=== PATIENT | male | born 1940 | race Caucasian/White ===

== ENCOUNTER → 2016-04-29 09:53 | Outpatient (CLI) | payer OTHER | END | disposition home or self-care (01) | LOC: D.MRI 09:53 | DX: M25.571 Pain in right ankle and joints of right foot (principal) ==

== ENCOUNTER → 2016-11-02 08:02 | Outpatient (CLI) | payer OTHER | END | disposition home or self-care (01) | LOC: D.CT 08:00 | DX: R10.9 Unspecified abdominal pain (principal) ==

== ENCOUNTER → 2016-12-06 07:28 | Outpatient (CLI) | payer OTHER ==
[2016-12-06 08:19] LABS: CREATININE - SERUM 1.2 mg/dL (0.6-1.3)
== END | disposition home or self-care (01) ==
LOC: D.LAB 07:28 → D.MRI 08:00
PROVIDERS: Family Medicine
DX: R93.5 Abnormal findings on diagnostic imaging of other abdominal regions, including retroperitoneum (principal)

== ENCOUNTER 2017-08-16 07:12 | Outpatient (CLI) | payer MEDICARE ==
[~2017-08-16] VITALS: Ht 193 cm; Wt 109.1 kg
--- NOTE | ~2017-08-16 | HEMODYNAMI ---
PATIENT:FLOWER DUARTE JR MEDICAL RECORD: [id number] : 42 LOCATION:D.CAT ADMISSION DATE: 08/16/17 Generatedon:08/16/20179:54 Patient name: FLOWER DUARTE Patient #: [id number] SSN: : 01/1941 Date of study: 08/16/2017 Page: Of Hemodynamic Procedure Report Patient Data Patient Demographics Procedure consent was obtained First Name: FLOWER Gender: Male Last Name: FELICIA Suffix: Patient #: [id number] : 1940 Age: 77 year(s) Accession #: Race: Unknown [id number] Additional ID: [id number] Contact details [address]: [address] [place] [address] COURT State: [place] City: [facility] Zip code: [address] Past Medical History Allergies Allergen Reaction Date Comments Reported Other allergy 08/16/2017 Quineprine Admission Admission Data Admission Date: 08/16/2017 Admission Time: 7:12 Procedure Procedure Types Cath Procedure Diagnostic Procedure LHC LHC w/Coronaries Procedure Description Procedure Date Procedure Date: 08/16/2017 Procedure Start Time: 9:39 Procedure End Time: 9:53 Procedure Staff Name Function Fawad Caballero MD Performing Physician Zaira Yoo RT Monitor Sheng Felix RN Nurse Jeramie Charles RT Scrub Procedure Data Cath Procedure Fluoroscopy Diagnostic fluoroscopy Total fluoroscopy Time: 1.9 time: 1.9 min min Diagnostic fluoroscopy Total fluoroscopy dose: 626 dose: 626 mGy mGy Contrast Material Contrast Material Type Amount (ml) Isovue 370 56 Entry Location Entry Primary Successful Side Size Upsize Upsize Entry Closure Crane ccessful Closure Location (Fr) 1 (Fr) 2 (Fr) Remarks Device Remarks Radial Right 6 Fr Mechanical artery Short Compression Estimated blood loss: 5 ml Diagnostic catheters Device Type Used For End Catheter Placement DIAGNOSTIC Valentin 110cm LV Angiography 5Fr catheter ([id number]) DIAGNOSTIC Valentin 110cm Right Coronary 5Fr catheter (032960) Angiography DIAGNOSTIC Valentin 110cm Left Coronary 5Fr catheter (790261) Angiography Procedure Complications No complications Procedure Medications Medication Administration Route Dosage 0.9% NaCl I.V. 100 ml/hr Oxygen etCO2 Nasal cannula 2 l/min Heparin Flush Bag added to field 2 bags (1000units/500ml NS) Lidocaine 2% added to field 20 Radial Cocktail added to field 1 syringe (Verapomil 2mg/Nitro 400mcg/Heparin 1500units) Versed I.V. 1 mg Fentanyl I.V. 50 mcg Radial Cocktail I.A. 1 syringe (Verapomil 2mg/Nitro 400mcg/Heparin 1500units) Hemodynamics Rest Heart Rate: 68 (bpm) Pressure Samples Time Site Value (mmHg) Purpose Heart Use Rate(bpm) 9:44 LV 146/0,10 EDP 71 Gradients Valve Time Site Site Mean SEP/DFP Peak To Heart Use 1 2 (mmHg) (sec/min) Peak Rate (mmHg) (bpm) Aortic 9:45 LV AO 74 Snapshots Pre Cath Intra NCS Post Cath Vital Signs Time Heart Resp SPO2 etCO2 NIBP (mmHg) Rhythm Pain Sedation Rate (ipm) (%) (mmHg) Status Level (bpm) 9:34:23 70 17 89 200/118(171) NSR 0 (11) 10(A) , No pain 9:39:14 68 14 90 36 200/119(172) NSR 0 (11) 9(A) , No pain 9:44:05 73 16 93 36.8 173/75(105) NSR 0 (11) 9(A) , No pain 9:48:50 70 16 88 37.5 166/88(135) NSR 0 (11) 9(A) , No pain 9:52:33 68 16 89 34.5 177/98(134) NSR 0 (11) 9(A) , No pain Medications Time Medication Route Dose Verified Delivered Reason Notes Effectiveness by by 9:32:37 0.9% NaCl I.V. 100 Sheng Sheng Per ml/hr Elvira Felix physician RN RN 9:32:46 Oxygen etCO2 2 l/min Sheng Sheng Per Nasal Elvira Felix physician cannula RN RN 9:32:56 Heparin Flush added 2 bags Sheng Sheng used for Bag to Elvira Felix procedure (1000units/500ml field RN RN NS) 9:33:07 Lidocaine 2% added 20ml Sheng Sheng for local to vial Elvira Felix anesthetic field AJ RN 9:33:18 Radial Cocktail added 1 Sheng Sheng used for (Verapomil to syringe Elvira Felix procedure 2mg/Nitro field AJ RN 400mcg/Heparin 1500units) 9:35:02 Versed I.V. 1 mg Sheng Sheng for sedation Elvira Felix RN, RN 9:35:11 Fentanyl I.V. 50 mcg Sheng Sheng for sedation Elvira Felix RN, RN 9:42:53 Radial Cocktail I.A. 1 Sheng Fawad for (Verapomil syringe Elvira Caballero MD vasodilation 2mg/Nitro RN 400mcg/Heparin 1500units) Procedure Log Time Note 9:06:26 Informed consent obtained and on chart 9:19:59 Time tracking: Regular hours (M-F 7:00 - 5:00) 9:20:03 Plan of Care:Hemodynamics will remain stable., Cardiac rhythm will remain stable., Comfort level will be maintained., Respiratory function will remain adequate., Patient/ family verbilizes understanding of procedure., Procedure tolerated without complication., Recovers from procedure without complications.. 9:20:08 Sheng Felix RN sent for patient. Start room use. 9:20:26 Patient received from Pre/Post Procedure Room to CCL 1 Alert and oriented. Tansferred to table in Supine position. 9:20:27 Warm blankets applied, and patricia hugger turned on for patient comfort. 9:20:28 Correct patient and procedure confirmed by team. 9:20:29 ECG and BP/O2 sat monitors applied to patient. 9:20:30 Full Disclosure recording started 9:32:35 Vital chart was started 9:32:37 0.9% NaCl 100 ml/hr I.V. was administered by Sheng Felix RN; Per physician; 9:32:38 Rhythm: sinus rhythm 9:32:46 Oxygen 2 l/min etCO2 Nasal cannula was administered by Sheng Felix RN; Per physician; 9:32:53 H&P Date Dictated: 08/14/2017 Within 30 days and on chart., H&P Addendum completed by physician on day of procedure. (MUST COMPLETE FOR ALL OUTPATIENTS). 9:32:54 Pre-procedure instructions explained to patient. 9:32:54 Pre-op teaching completed and patient verbalized understanding. 9:32:56 Heparin Flush Bag (1000units/500ml NS) 2 bags added to field was administered by Sheng Felix RN; used for procedure; 9:32:56 Family in patients room. 9:32:57 Patient NPO since Midnight. 9:33:07 Lidocaine 2% 20ml vial added to field was administered by Sheng Felix RN; for local anesthetic; 9:33:15 Patient allergic to Other allergyQuineprine 9:33:17 Is the patient allergic to Iodine/contrast media? No. 9:33:18 Radial Cocktail (Verapomil 2mg/Nitro 400mcg/Heparin 1500units) 1 syringe added to field was administered by Sheng Felix RN; used for procedure; 9:33:20 Is patient on blood thinner?Yes 9:33:21 ACC The patient was administered the following blood thiners within the last 24 hours: ACCPlavix 9:33:23 Patient diabetic? Yes. 9:33:24 If diabetic: On Metformin? Yes 9:33:26 If on Metformin: Last Dose? 08/14/2017 9:33:30 Previous problem with sedation/anesthesia? No ? 9:33:31 Snore? Yes 9:33:32 Sleep apnea? Yes 9:33:33 Deviated septum? No 9:33:34 Opens mouth fully? Yes 9:33:35 Sticks out tongue? Yes 9:33:37 Airway obstruction? No ? 9:33:39 Dentures? No ? 9:33:42 Pre procedure: right dorsailis pedis pulse 2+ Normal; easily identifiable; not easily obliterated 9:33:44 Modified Eric's test Ulnar < 7 seconds 9:33:46 Patient pain scale 0/10 ?. 9:33:53 IV patent on arrival in left hand with 0.9% NaCl at [facility]. 9:33:55 Lab results completed and on chart. 9:34:06 Right Radial & Right Groin area was prepped with chlora-prep and draped in sterile fashion 9:34:07 Alarms reviewed by R. N. 9:34:07 Sharps counted by scrub and verified by R.N. 9:34:12 Use device set Radial Dx or PCI 9:34:13 ACIST Syringe (91136) opened to sterile field. 9:34:14 Medline Cath Pack ([id number]) opened to sterile field. 9:34:14 Bag Decanter (2002S) opened to sterile field. 9:34:15 DIAGNOSTIC WIRE .035 260cm J wire (378970) opened to sterile field. 9:34:15 ACIST Hand Control (69980) opened to sterile field. 9:34:16 ACIST Manifold (75059) opened to sterile field. 9:34:18 MBrace Wrist Support ([id number]) opened to sterile field. 9:34:19 SHEATH 6Fr Prelude Radial ([id number]) opened to sterile field. 9:34:27 Final Timeout: patient, procedure, and site verified with staff and physician. All members of the team are in agreement. 9:34:35 Right Radial site verified by team. 9:34:38 Physical assessment completed. ASA score P 2 - A patient with mild systemic disease as per Fawad Caballero MD. 9:34:40 Sedation plan: IV Moderate Sedation Medication:Versed, Fentanyl 9:35:02 Versed 1 mg I.V. was administered by Sheng Felix RN; for sedation; 9:35:04 Tegaderm 4 x 4 (1626W) opened to sterile field. 9:35:11 Fentanyl 50 mcg I.V. was administered by Sheng Felix RN; for sedation; 9:39:06 Zero performed for pressure channel P1 9:39:11 Baseline sample Acquired. 9:39:19 Procedure started. 9:39:24 Local anesthetic to right radial artery with Lidocaine 2% by Fawad Caballero MD.INITIAL ACCESS ONLY 9:41:31 A 6 Fr Short sheath was inserted into the Right Radial artery 9:42:53 Radial Cocktail (Verapomil 2mg/Nitro 400mcg/Heparin 1500units) 1 syringe I.A. was administered by Fawad Caballero MD; for vasodilation; 9:43:09 A DIAGNOSTIC Valentin 110cm 5Fr catheter (395120) was advanced over the wire and used for LV Angiography. 9:45:15 LV gram done using FAIRCHILD 9:45:18 LV hemodynamics recorded. 9:45:21 Injector settings: Ml/sec: 12, Volume: 8, 9:45:31 A DIAGNOSTIC Vaelntin 110cm 5Fr catheter (193971) was advanced over the wire and used for Right Coronary Angiography. 9:46:48 A DIAGNOSTIC Valentin 110cm 5Fr catheter (825160) was advanced over the wire and used for Left Coronary Angiography. 9:48:34 Catheter removed. 9:48:50 Sheath removed intact; hemostasis achieved with Mechanical Compression to the Right Radial artery. 9:48:51 Procedure ended.(Physican Out) 9:49:51 Fluoroscopy time 01.90 minutes. 9:49:55 Fluoroscopy dose: 626 mGy 9:49:55 Flurop Dose total: 626 9:50:00 Contrast amount:Isovue 370 56ml. 9:50:01 Sharps counted by scrub and verified by R.N. 9:50:03 Insertion/operative site no bleeding no hematoma. 9:50:10 Post right radial artery:stable, clean and dry 9:50:12 Post Procedure Pulses reassessed and unchanged 9:50:17 Post-procedure physical assessment completed. ASA score P 2 - A patient with mild systemic disease as per Fawad Caballero MD. 9:50:19 Post procedure rhythm: unchanged. 9:50:22 Estimated blood loss: 5 ml 9:50:25 Post procedure instruction explained to patient.Patient verbalizes understanding. 9:50:25 Patient needs reinforcement of post procedure teaching. 9:50:51 Procedure Complication : No complications 9:50:52 See physician's report for complete and final results. 9:51:01 TR BAND Standard ([id number]) opened to sterile field. 9:51:21 TR band inflated with 9cc of air. 9:51:39 Procedure and supply charges have been captured, reviewed, submitted and are correct. 9:52:29 PAGED SAHARA RE: CABG CONSULT FOR DR LOBO 9:53:31 Vital chart was stopped 9:53:34 Report given to Pre/Post Procedure Room. 9:53:37 Patient transfered to Pre/Post Procedure Room with Stretcher. 9:53:45 Procedure ended. 9:53:45 Full Disclosure recording stopped 9:53:49 End room use (Document Last) Device Usage Item Name Manufacture Quantity Catalog Number Hospital Part Current M inimal Lot# / Charge Number Stock Stock Serial# Code ACIST Syringe Acist 1 84413 373539 364364 648551 2 0 (86019) Medical Systems Inc Medline Cath Cardinal 1 [id number] 905850 22390 195116 5 Pack Health ([id number]) Bag Decanter Microtek 1 2001S 350302 86879 301140 5 (2001S) Medical Inc. DIAGNOSTIC WIRE St Maximus 1 270079 820519 666089 378788 3 0 .035 260cm J wire (885316) ACIST Hand Acist 1 96229 245994 755586 561419 5 Control (46174) Medical Systems Inc ACIST Manifold Acist 1 45330 502893 020530 001852 5 (85919) Medical Systems Inc MBrace Wrist Advanced 1 140-0250-00 396209 91211 346910 5 Support Vascular ([id number]) Dynamics SHEATH 6Fr Merit 1 [id number] 043656 420157 940571 5 Prelude Radial Medical ([id number]) Tegaderm 4 x 4 3M 1 1626W 660258 126823 520112 5 (1626W) DIAGNOSTIC Terumo 1 40-4645 226634 543341 477235 5 Valentin 110cm 5Fr catheter (999592) TR BAND Terumo 1 [id number] 191707 327922 011023 4 0 Standard (NOU85SAN) Signature Audit [place] Stage Time Signature Unsigned Intra-Procedure 08/16/2017 Zaira 9:53:59 AM Counts RT(R) Signatures Monitor : Zaira Signature : Counts RT Date : Time : [address] [place] [address]
[2017-08-16] MEDS ORDERED: CARDURA1 MG PO (07:19)
[2017-08-16] MEDS ORDERED: NEURONTIN 300300 MG PO (07:20)
[2017-08-16] MEDS ORDERED: AVODART0.5 MG PO (07:20)
[2017-08-16] MEDS ORDERED: NORMODYNE / TR300 MG PO (07:21)
[2017-08-16] MEDS ORDERED: SYNTHROID75 MCG PO (07:21)
[2017-08-16] MEDS ORDERED: LINZESS145 MCG PO (07:22)
[2017-08-16] MEDS ORDERED: MOBIC7.5 MG PO (07:23)
[2017-08-16] MEDS ORDERED: OMEPRAZOLE40 MG PO (07:23)
[2017-08-16] MEDS ORDERED: MYRBETRIQ50 MG PO (07:23)
[2017-08-16] MEDS ORDERED: KLOR-CON 1010 MEQ PO (07:24)
[2017-08-16] MEDS ORDERED: ZOCOR40 MG PO (07:24)
[2017-08-16] MEDS ORDERED: ALDACTONE25 MG PO (07:24)
[2017-08-16] MEDS ORDERED: DETROL LA4 MG PO (07:25)
[2017-08-16] MEDS ORDERED: DIOVAN320 MG PO (07:25)
[2017-08-16] MEDS ORDERED: GLUCOPHAGE500 MG PO (07:26)
[2017-08-16 07:34] VITALS: BP 199/106; Ht 193 cm; Wt 109.1 kg
[2017-08-16 07:51] LABS: BASOPHILS 0.5 % (0-2); EOSINOPHILS 3.6 % (0-7); HEMATOCRIT 39.4 % (42.0-54.0); HEMOGLOBIN 13.9 g/dL (13.5-17.5); LYMPHOCYTES 17.3 % (15-50); MCH 31.6 pg (26.0-34.0); MCHC 35.3 g/dL (31.0-37.0); MCV 89.5 fL (80.0-100.0); MEAN PLATELET VOLUME 12.3 fL (7.4-10.4); MONOCYTES 11.4 % (2-11); NEUTROPHILS 67.2 % (40-80); PLATELET COUNT 151 10x3/uL (130-400); RDW 12.9 % (11.5-14.5); WBC 5.9 10x3/uL (4.8-10.8)
[2017-08-16 07:56] LABS: CALCIUM 9.1 mg/dL (8.5-10.1); CARBON DIOXIDE 25.5 mmol/L (21.0-32.0); CREATININE - SERUM 1.5 mg/dL (0.6-1.3); POTASSIUM - SERUM 3.5 mmol/L (3.5-5.1)
== END 2017-08-16 13:00 | disposition home or self-care (01) ==
LOC: D.CATH 07:12
PROVIDERS: Internal Medicine Cardiovascular Disease
DX: I25.119 Atherosclerotic heart disease of native coronary artery with unspecified angina pectoris (principal); E11.9 Type 2 diabetes mellitus without complications; Z01.812 Encounter for preprocedural laboratory examination

== ENCOUNTER 2017-08-18 11:30 | Inpatient (IN) | payer MEDICARE ==
[~2017-08-18] VITALS: Ht 193 cm; Wt 116.9 kg
--- NOTE | ~2017-08-18 | HP ---
PATIENT: FLOWER DUARTE JR MEDICAL RECORD: [id number] ACCOUNT: [id number] LOCATION:[facility] : 42 ADMISSION DATE: 08/22/17 HISTORY AND PHYSICAL EXAMINATION FLOWER Felton (77yo, M) ID# [id number]. Date/Time08/17/2017 02:50OKBST97/12/1941Service Dept.NP_[facility] ClinicProviderEDKELSEA RIOS MDInsuranceMed Primary: [place] (MEDICARE REPLACEMENT/ADVANTAGE - PFFS) Insurance # : [id number] Employer Name : RETIRED Prescription: Solum - This member could not be found in the payer's files. Please verify coverage and all member demographic information. Chief Complaint Coronary artery disease CAD EVALUATION FOR CABG Vitals BP:168/88 sitting R arm 08/17/2017 02:41 pm 164/80 sitting L arm 08/17/2017 02:42 pmHR:78/REG 08/17/2017 02:43 pmHt:6 ft 3 in 08/17/2017 02:39 pmWt:242 lbs 08/17/2017 02:39 pmBMI:30.2 08/17/2017 02:39 pmAllergies Reviewed Allergies ACCUPRILMedications Reviewed Medications Detrol LA 4 mg capsule,extended release Take 1 capsule(s) every day by oral route.08/17/17 enteredKathy Wilsondoxazosin 1 mg tablet Take 1 tablet(s) every day by oral route.08/17/17 enteredKathy Wilsondutasteride 0.5 mg capsule Take 1 capsule(s) every day by oral route.08/17/17 enteredKathy Wilsongabapentin 300 mg capsule Take 1 capsule(s) every day by oral route.08/17/17 enteredKathy WilsonKlor-Con 10 mEq tablet,extended release Take 1 tablet(s) every day by oral route.08/17/17 enteredKathy Wilsonlabetalol 300 mg tablet Take 1 tablet(s) twice a day by oral route.08/17/17 enteredKathy Wilsonlevothyroxine 75 mcg tablet Take 1 tablet(s) every day by oral route.08/17/17 enteredKathy WilsonLinzess 72 mcg capsule Take 1 capsule(s) every day by oral route.08/17/17 [facility] Take 1 tablet(s) every day by oral route.08/17/17 [facility] HospitalmetFORMIN 500 mg tablet Take 1 tablet(s) twice a day by oral route.08/17/17 [facility] Hospitalmirabegron ER 50 mg tablet,extended release 24 hr Take 1 tablet(s) every day by oral route.08/17/17 [facility] Hospitalomeprazole 40 mg capsule,delayed release Take 1 capsule(s) every day by oral route.08/17/17 [facility]alsimvastatin 40 mg tablet Take 1 tablet(s) every day by oral route.08/17/17 [facility]valsartan 320 mg tablet Take 1 tablet(s) every day by oral route.08/17/17 [facility] HospitalProblems Reviewed Problems Coronary arteriosclerosis - Onset: 08/17/2017 HISTORY AND PHYSICAL [id number] FLOWER DUARTE JR Family History Reviewed Family History Mother- Aortic valve disorderFather- Essential hypertensionSocial History Reviewed Social History Cardiology Family history of heart disease?: Y Smoking Status: Never smoker High Cholesterol: Y High blood pressure: Y Overweight: Y Obese: Y Diabetes: Y Surgical History Reviewed Surgical History bladder cancer 1994 colonoscopy Past Medical History Reviewed Past Medical History Bladder Problems: Y - cancer 1994 Depression: Y Diabetes: Y GERD: Y Hyperlipidemia: Y Hypertension: Y Hypothyroidism: Y Shortness of Breath: Y Cancer: (no answer) - bladder 1994 Documents for Discussion Discussed the following documents: CARDIAC CATHETERIZATION (SURG) - 08/16/17 Screening None recorded. HPI severe coronary artery disease ROS Patient reports exercise intolerance but reports no fever, no night sweats, no significant weight gain, and no significant weight loss; ffatigue. He reports shortness of breath when walking but reports no chest pain, no arm pain on exertion, no shortness of breath when lying down, no palpitations, and no known heart murmur. He reports no dry eyes, no irritation, and no vision change. He reports no diffi culty hearing and no ear pain. He reports no frequent nosebleeds and no nose/sinus problems. He reports no sore throat, no bleeding gums, no snoring, no dry mouth, no mouth ulcers, no oral abnormalities, and no teeth problems. He reports no jugular vein d i stension and no swollen glands. He reports no cough, no wheezing, no shortness of breath, and no coughing up blood. He reports no abdominal pain, no vomiting, normal appetite, no diarrhea, not vomiting blood, no nausea, and no constipation. He reports no i ncontinence, no difficulty urinating, no hematuria, and no increased frequency. He reports no muscle aches, no muscle weakness, no arthralgias/joint pain, no back pain, and no swelling in the extremities. He reports no abnormal mole, no jaundice, and no r a shes. He reports no loss of consciousness, no weakness, no numbness, no seizures, no dizziness, and no headaches. He reports no depression, no sleep disturbances, feeling safe in relationship, and no alcohol abuse. He reports no fatigue. He reports no swo llen glands and no bruising. He reports no runny nose, no sinus pressure, no itching, no hives, and no frequent HISTORY AND PHYSICAL [id number] FLOWER DUARTE JR sneezing. ROS as noted in the HPI Physical Exam Patient is a 77-year-old male. Constitutional: General Appearance well nourished and developed and healthy-appearing. Level of Distress NAD. Ambulation ambulating normally. Cardiovascular: Apical Impulse not displaced or no thrill. Heart Auscultation normal s1 and s2; no murmurs, rubs, or gallops; and RRR. Arterial Pulses no abdominal aorta bruits, femoral bruits, or popliteal bruits and 2+ bilateral, carotid 2+ bilateral, femoral 2+ bilateral, popliteal 2+ bilateral, and dorsalis pedis 2+ bilateral. Edema no edema or varicosities. Lungs: Repiratory Effort no dyspnea. Percussion no hyperresonance o r dullness or flatness. Auscultation no wheezing, rhonchi, or rales / crackles and breathing sounds normal, good air movement, and CTA except as noted. Abdomen: Bowl Sounds normal. Inspection and Palpation no tenderness, guarding, masses, or rebound tende rness and soft and non-distended. Liver non-tender and no hepatomegaly. Spleen non-tender and no splenomegaly. Hernia none palpable. Musculoskeletal System: Gait And Stance normal gait and stance. Digits and Nails normal nails and no cyanosis. Neurologic: Cranial Nerves grossly intact. Reflexes DTRs 2+ bilaterally throughout. Sensation grossly intact. Lymph Nodes: Lymph Nodes no cervical LAD, supraclavicular LAD, axillary LAD, or inguinal LAD. Eyes: Lids and Conjunctivae no discharge or pallor and non-injected. Pupils PERRLA. Cornea grossly intact. EOM EOMI. Lens clear. Sclerae non-icteric. Neck: Neck no masses, enlarged lymph nodes, or carotid bruits and supple and trachea midline. Thyroid no enlargement or nodules and non-tender. Skin: Inspection and Palpation no rash, lesions, ulcers, jaundice, or abnormal nevi. Assessment / Plan severe coronary artery disease fatigue secondary to coronary artery disease 1. Coronary arteriosclerosis I25.10: Atherosclerotic heart disease of comanche coronary artery without angina pectoris Discussion Notes Severe coronary artery disease. Diabetes. Good left ventricular function I have discussed the patient's disease process with him and his family in detail as well as the alternative methods of treat ment. We discussed coronary artery bypass including the expected benefits and risks which include bleeding, infection, stroke, , and imponderables. He understands all of the above and wishes to proceed with planned surgery. Carotid Doppler study Allow Plavix to wear off HISTORY AND PHYSICAL [id number] FLOWER DUARTE JR No need for pulmonary function studies he has never smoked Scheduled for 22 August 2017 JAGJIT RIOS MD at 1309 CC: [id number] DICTATION DATE: 08/17/17 1400 RELAY ASSEMBLER: DONI 08/18/17 1129 ADM IN [place] [address] [place] [address]
--- NOTE | ~2017-08-18 | CN ---
PATIENT NAME:FLOWER DUARTE JR MEDICAL RECORD: [id number] : 42 LOCATION:[facility] ADMIT DATE: 08/22/17 ACCOUNT: [id number] CONSULTING PHYSICIAN: MJ PEARSON MD REFERRING PHYSICIAN: JAGJIT RIOS MD DATE OF CONSULTATION: 08/22/2017 DATE OF ADMISSION: 08/22/2017 REASON FOR CONSULTATION: Medical management. HISTORY OF PRESENT ILLNESS: The patient is a 77-year-old gentleman who had presented to my office on 07/27/2017. He complained of increasing shortness of breath. He had shortness of breath with exertion combined with extreme fatigue. He was referred to Dr. Fawad Caballero, waiter waitress, for dyspnea on exertion. The patient did undergo cardiac catheterization and was found to have 5-vessel coronary artery disease. He was referred to Dr. Rios. Dr. Rios did admit the patient for coronary artery bypass grafting today. PAST MEDICAL HISTORY: Significant that he has had hypothyroidism. He has had diabetes mellitus, vitamin D deficiency and hyperlipidemia. He has had obstructive sleep apnea. He has had hypertension, osteoarthritis of the knees. He has had bladder cancer in 1994, bursitis of shoulders. FAMILY HISTORY: Father had heart disease, at 88 years of age. Mother's history is unknown. HABITS: The patient has never been a smoker, occasional alcoholic beverage. He is a graduate of 4-year college degree. He is . 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 ALLERGIES: HE DOES HAVE ALLERGIES TO ACCUPRIL, CAUSE ANAPHYLAXIS. MEDICATIONS: Include Cardura 1 mg one p.o. bedtime, he is on dutasteride 0.5 mg daily, Flonase 1 spray in each naris every day, gabapentin 300 mg p.o. at bedtime for peripheral neuropathy, labetalol 300 mg 1-1/2 tablet b.i.d., levothyroxine 75 mcg once a day, Linzess 75 mg daily, meloxicam 15 mg daily, metformin 500 mg 1 p.o. b.i.d., Myrbetriq 50 mg p.o. every day, omeprazole 40 mg once a day, KCl 10 mEq 2 tablets once a day, Zocor 40 mg daily, spironolactone 25 mg daily. REVIEW OF SYSTEMS: Cannot be gathered at the present time. SOCIAL HISTORY: He was born and raised in [facility]. He is currently . PHYSICAL EXAMINATION: GENERAL: The patient is postop at the present time. He is intubated. VITAL SIGNS: His temperature is 98.2, his pulse is 97, respirations 14, his blood pressure is 110/56 and O2 sat is 94%. HEENT: Head is normocephalic. No lesions. Ears: TMs clear. Eyes: Pupils equal, round and reactive to light. His extraocular movements are intact. His nasal cavity, oral cavity, oropharynx are clear. He does have an NG tube present. He has a trach tube present as well. HEART: Has a regular rate. CONSULT REPORT [id number] FLOWER DUARTE JR LUNGS: Appear clear. He has had a midline sternal incision. No active bleeding is noted. He also has two chest tubes. Moss catheter is in place. ABDOMEN: Soft, bowel sounds are positive. LOWER EXTREMITIES: He has no evidence of cyanosis in the feet. He has dressings bilaterally on both legs. POSTOPERATIVE DATA: His white count is 12.7, hemoglobin 11.1, hematocrit 32.1, his platelets are 124. His sodium is 145, potassium 4.1, chloride is 109, BUN is 26, creatinine is 1.4. His glucose was 269, calcium was 7.9. Preoperatively, he had had carotid Dopplers, which showed no significant stenosis. He also had a chest x-ray on the , which showed no cardiomegaly, no active infiltrates. ASSESSMENT: Status post coronary artery bypass grafting times 4. History of hypertension, hyperlipidemia, diabetes mellitus, hypothyroidism, history of bladder cancer, currently stable. PLAN: Continue his current medications. The patient is currently on insulin. We will follow with you. Thanks for the consultation. TRANSINT:[id number] Voice Confirmation ID: [id number] DOCUMENT ID: [id number] MJ PEARSON MD at 1027 CC: [id number] DICTATION DATE: 08/22/171741 DAMPER FITTER: 08/22/17 1846 ADM IN [facility] [address] [place] [address]
--- NOTE | ~2017-08-18 | OP ---
PATIENT NAME: FLOWER DUARTE JR MEDICAL RECORD: [id number] :41 LOCATION:[facility] D.CV05 ADMISSION DATE:08/22/17 SURGEON: JUAQUIN RIOS MD DATE OF OPERATION: 08/22/2017 SURGEON: Juaquin Rios MD HYDROMETER TESTER: Tony Orozco MD ANESTHESIA: General endotracheal, Dr. Rogers. OPERATION PERFORMED: Coronary artery bypass utilizing left internal thoracic sequential first diagonal, sequential left anterior descending, reverse saphenous vein segment to the distal circumflex coronary artery and reverse saphenous vein segment to the right coronary artery. PREOPERATIVE DIAGNOSIS: Severe occlusive coronary artery disease. POSTOPERATIVE DIAGNOSIS: Severe occlusive coronary artery disease. INDICATION FOR OPERATION: Severe occlusive coronary artery disease with compelling anatomy. FINDINGS OF THE OPERATION: The vein was of good quality in the thigh, but lower leg on the right was small. The left internal thoracic was an excellent graft for sequential grafting. The targets were of good caliber and quality. ESTIMATED BLOOD LOSS: Cell Saver was used. DESCRIPTION OF PROCEDURE: After informed consent, adequate preoperative medication, and evaluation, the patient was brought to the operating room and placed on the table in the supine position. After induction of general endotracheal anesthesia and application of appropriate monitoring devices, the chest, neck, abdomen, and both legs were prepped and draped in a sterile field, utilizing Betadine scrub, alcohol, and Betadine solution. Betadine-impregnated drape was also used. Saphenous vein was harvested from the right leg and prepared for reverse saphenous vein grafting. The leg was closed over drains utilizing 3-0 Vicryl and skin enrrique. A median sternotomy incision was made and dissection carried down the fascia. Hemostasis was maintained with electrocautery. Sternum was divided. Innominate vein was identified and protected. Left internal thoracic was taken down and prepared for grafting. The patient was given a calculated dose of heparin, cannulated in standard fashion utilizing 1 aortic, one 2-stage cannula in atrium and inferior vena cava. The patient was placed on cardiopulmonary bypass, cooled to 32 degrees centigrade. A cross clamp was placed just proximal to the aortic cannula and the patient was given cardioplegic solution through the aortic root. The patient was given a cold induction and cold maintenance. The patient was given cold intermittent cardioplegic solution throughout the procedure through the grafts, through the root or a combination of both. The first vessel to be grafted was the right coronary artery. It was grafted end-to-side utilizing a running 7-0 Prolene suture. Grafts were measured back to the aorta and a proximal anastomosis fashioned utilizing running 6-0 Prolene suture. Next, the distal circumflex or second obtuse marginal was exposed and an anastomosis OPERATIVE REPORT [id number] FLOWER DUARTE JR end-to-side made utilizing a running 7-0 Prolene suture. The graft was measured back to the aorta and a proximal anastomosis fashioned utilizing running 6-0 Prolene suture. Next, left internal thoracic was brought out through the hole in pericardium, sutured to the first diagonal [id number] utilizing a running 8-0 Prolene suture. Pedicle was attached to the epicardium utilizing 6-0 Prolene suture. Next, the distal anastomosis to the left anterior descending was performed end-to-side utilizing a running 8-0 Prolene suture. All maneuvers to remove trapped air were performed. The patient was given warm cardioplegic reperfusion and controlled reperfusion. The patient rewarmed to 37 degrees centigrade. Two atrial and 2 ventricular pacing wires were placed in the heart and brought out through the epigastric area. The patient was weaned from cardiopulmonary bypass. After being stable off bypass, he was given calculated dose of protamine to reverse the heparin. Hemostasis was assured. A #40 right angle and #36 chest tubes were brought in through the epigastric area and placed in mediastinum. A separate left pleural tube was placed in the left hemithorax and connected to underwater seal and suction. Chest was again irrigated. Instrument count and sponge count were correct times 2. Chest closed in layers utilizing #7 wire on the sternum, #2 Vicryl on linea alba and pectoralis fascia. Subcutaneous tissue was approximated with 3-0 Vicryl and skin approximated with 3-0 subcuticular Vicryl. Sterile dressings were applied. The patient tolerated the procedure well and was transferred to CV ICU in satisfactory condition. TRANSINT:[id number] Voice Confirmation ID: [id number] DOCUMENT ID: [id number] JUAQUIN RIOS MD at 1309 CC: [id number] DICTATION DATE: 08/22/17 1500 RN SANE: 08/22/17 1525 ADM IN [address] [place] [address]
--- NOTE | ~2017-08-18 | TEE ---
PATIENT:FLOWER DUARTE JR MEDICAL RECORD: [id number] LOCATION:[place] [address] AGE OF PATIENT: 77 ADMISSION DATE: 08/22/17 SEX: M REFERRING PHYSICIAN: INTERPRETING PHYSICIAN: DOMINICK OLIVAS MD TRANSESOPHAGEAL ECHOCARDIOGRAM Date: 08/22/17 MARISELA CHARGE Y INDICATIONS: CABG PREMEDICATIONS: PATIENT'S RESPONSE PROCEDURE DOPPLER MEASUREMENTS: LVIT LA PA RA LVOT RVOT Asc. Ao AV Gradient Peak AV Mean AV Area MV Gradient Peak MV Mean MV Area INTERPRETATION: Doppler: 2-D: COLOR FLOW DOPPLER NORMAL SALINE STUDY: MISCELLANOUS: DIAGNOSIS: PLAN: Tutoring Manager:4 Dr. Caballero Business Process Lead: 2 ABIMAEL SIEGEL COMMENTS: GABRIEL PATIENT DATE OF SERVICE: PROCEDURE: Transesophageal echo evaluation of valvular structures during bypass surgery. FINDINGS: 1. Left ventricular chamber size is within normal limits. Left ventricular systolic function is normal. Overall ejection fraction estimated 60%. 2. Left atrium, right atrium, and right ventricle chamber sizes are within TRANSESOPHAGEAL ECHOCARDIOGRAM REPORT [id number] FLOWER DUARTE JR normal limits. 3. Valvular structures have normal structure and motion. 4. Doppler interrogation only reveals trace mitral regurgitation, trace tricuspid regurgitation, no other valvular insufficiency or stenosis. 5. No evidence of pericardial effusion or left ventricular thrombus. TRANSINT:[id number] Voice Confirmation ID: [id number] DOCUMENT ID: [id number] at 1741 CC: [id number] DICTATION DATE: 08/22/17 1219 POWER AND RECOVERY SUPERINTENDENT: 08/22/17 1605 ADM IN [place] [id number] [place] [address]
[~2017-08-18 11:30] MED LIST: ALDACTONE25 MG PO; AVODART0.5 MG PO; CARDURA1 MG PO; DETROL LA4 MG PO; DIOVAN320 MG PO; GLUCOPHAGE500 MG PO; KLOR-CON 1010 MEQ PO; LINZESS145 MCG PO; MOBIC7.5 MG PO; MYRBETRIQ50 MG PO; NEURONTIN 300300 MG PO; NORMODYNE / TR300 MG PO; OMEPRAZOLE40 MG PO; SYNTHROID75 MCG PO; ZOCOR40 MG PO
[2017-08-18] MEDS ORDERED: DETROL LA4 MG PO (12:31)
[2017-08-18] MEDS ORDERED: VITAMIN D31000 UNI2 PO (12:33)
[2017-08-18 14:58] LABS: BASOPHILS 0.6 % (0-2); HEMOGLOBIN 14.2 g/dL (13.5-17.5); IMMATURE GRANULOCYTES 0.2 % (0-5); LYMPHOCYTES 19.5 % (15-50); MCH 31.9 pg (26.0-34.0); MCHC 35.5 g/dL (31.0-37.0); MCV 89.9 fL (80.0-100.0); MEAN PLATELET VOLUME 11.8 fL (7.4-10.4); NEUTROPHILS 69.7 % (40-80); PLATELET COUNT 163 10x3/uL (130-400); RBC 4.45 10x6/uL (4.20-6.10); RDW 12.9 % (11.5-14.5); WBC 6.6 10x3/uL (4.8-10.8)
[2017-08-18 15:18] LABS: APPEARANCE CLEAR (CLEAR); BILIRUBIN NEGATIVE (NEGATIVE); COLOR YELLOW (YELLOW); GLUCOSE NEGATIVE (NEGATIVE); KETONE NEGATIVE (NEGATIVE); NITRITE NEGATIVE (NEGATIVE); PROTEIN TRACE mg/dL (NEGATIVE); UROBILINOGEN NORMAL (NORMAL)
[2017-08-18 15:19] LABS: RED CELLS - URINE 0-5 /hpf (0-5); WHITE CELLS - URINE 0-5 /hpf (0-5)
[2017-08-18 15:19] LABS: ALBUMIN 3.9 g/dL (3.4-5.0); ANION GAP 13.5 mmol/L (8-16); BILIRUBIN - TOTAL 0.71 mg/dL (0.2-1.3); CALCIUM 8.5 mg/dL (8.5-10.1); CARBON DIOXIDE 29.4 mmol/L (21.0-32.0); CREATININE - SERUM 1.5 mg/dL (0.6-1.3); PHOSPHOROUS 3.5 mg/dL (2.5-4.9); POTASSIUM - SERUM 3.9 mmol/L (3.5-5.1); T4 THYROXIN - FREE 0.93 ng/dL (0.76-1.46); THYROID STIMULATING HORMONE 2.72 uIU/mL (0.36-3.74); URIC ACID 6.2 mg/dL (2.6-7.2)
[2017-08-18 15:21] LABS: BACTERIA FEW /hpf (NONE SEEN)
[2017-08-18 15:28] LABS: INR 1.04 (0.85-1.17); PROTIME 13.2 SECONDS (11.6-15.0)
[2017-08-18 15:29] LABS: APTT 35.7 SECONDS (22.8-39.4)
[2017-08-22] VITALS (36 sets, daily range): BP systolic 108–189; BP diastolic 53–97; BMI 13.3; BMI 30.6
[2017-08-22] MEDS ORDERED: JALYN 0.5-0.41 EACH PO (05:38)
[2017-08-22 07:58] LABS: PLT FUNCT.(P2Y12) PLAVIX 268 PRU (194-418)
[2017-08-22 14:28] LABS: HEMATOCRIT 32.1 % (42.0-54.0); HEMOGLOBIN 11.1 g/dL (13.5-17.5); MCH 31.3 pg (26.0-34.0); MCHC 34.6 g/dL (31.0-37.0); MCV 90.4 fL (80.0-100.0); MEAN PLATELET VOLUME 11.8 fL (7.4-10.4); RBC 3.55 10x6/uL (4.20-6.10); RDW 13.1 % (11.5-14.5); WBC 12.7 10x3/uL (4.8-10.8)
[2017-08-22 14:36] LABS: ANION GAP 14.2 mmol/L (8-16); CALCIUM 7.7 mg/dL (8.5-10.1); CARBON DIOXIDE 25.9 mmol/L (21.0-32.0); CREATININE - SERUM 1.4 mg/dL (0.6-1.3); POTASSIUM - SERUM 4.1 mmol/L (3.5-5.1)
[2017-08-22 14:38] LABS: APTT 38.8 SECONDS (22.8-39.4); INR 1.4 (0.85-1.17); PROTIME 16.7 SECONDS (11.6-15.0)
[2017-08-23] VITALS (58 sets, daily range): BP systolic 112–142; BP diastolic 53–73; Ht 193 cm; Wt 116.9 kg
[2017-08-23 05:57] LABS: HEMATOCRIT 32.3 % (42.0-54.0); MCH 31.1 pg (26.0-34.0); MCHC 34.1 g/dL (31.0-37.0); MCV 91.2 fL (80.0-100.0); RBC 3.54 10x6/uL (4.20-6.10); RDW 13.6 % (11.5-14.5)
[2017-08-23 06:14] LABS: ALBUMIN 3.1 g/dL (3.4-5.0); ANION GAP 11.9 mmol/L (8-16); BILIRUBIN - TOTAL 0.89 mg/dL (0.2-1.3); CALCIUM 8.1 mg/dL (8.5-10.1); CREATININE - SERUM 1.3 mg/dL (0.6-1.3); POTASSIUM - SERUM 3.9 mmol/L (3.5-5.1); PROTEIN - SERUM 5.6 g/dL (6.4-8.2)
[2017-08-23 06:36] LABS: WBC 19.2 10x3/uL (4.8-10.8)
[2017-08-24] VITALS (24 sets, daily range): BP systolic 111–170; BP diastolic 51–92
[2017-08-24 06:14] LABS: HEMATOCRIT 30.2 % (42.0-54.0); HEMOGLOBIN 10.1 g/dL (13.5-17.5); MCH 31.4 pg (26.0-34.0); MCHC 33.4 g/dL (31.0-37.0); MEAN PLATELET VOLUME 11.9 fL (7.4-10.4); RBC 3.22 10x6/uL (4.20-6.10); RDW 14.1 % (11.5-14.5); WBC 15.9 10x3/uL (4.8-10.8)
[2017-08-24 06:15] LABS: MCV 93.8 fL (80.0-100.0)
[2017-08-24 06:39] LABS: ANION GAP 14.5 mmol/L (8-16); BILIRUBIN - TOTAL 1.15 mg/dL (0.2-1.3); CALCIUM 7.9 mg/dL (8.5-10.1); CARBON DIOXIDE 26.7 mmol/L (21.0-32.0); POTASSIUM - SERUM 4.2 mmol/L (3.5-5.1)
[2017-08-25] VITALS (22 sets, daily range): BP systolic 112–189; BP diastolic 61–87
[2017-08-25 05:21] LABS: HEMATOCRIT 29.5 % (42.0-54.0); HEMOGLOBIN 9.7 g/dL (13.5-17.5); MCHC 32.9 g/dL (31.0-37.0); MCV 94.2 fL (80.0-100.0); MEAN PLATELET VOLUME 12.4 fL (7.4-10.4); RBC 3.13 10x6/uL (4.20-6.10); WBC 12.6 10x3/uL (4.8-10.8)
[2017-08-25 05:38] LABS: ALBUMIN 2.8 g/dL (3.4-5.0); ANION GAP 11.4 mmol/L (8-16); BILIRUBIN - TOTAL 0.91 mg/dL (0.2-1.3); CALCIUM 7.6 mg/dL (8.5-10.1); CARBON DIOXIDE 27.7 mmol/L (21.0-32.0); CREATININE - SERUM 1.7 mg/dL (0.6-1.3); POTASSIUM - SERUM 4.1 mmol/L (3.5-5.1); PROTEIN - SERUM 6.1 g/dL (6.4-8.2)
[2017-08-26] VITALS (24 sets, daily range): BP systolic 119–187; BP diastolic 61–94
[2017-08-26 06:44] LABS: HEMATOCRIT 27.7 % (42.0-54.0); HEMOGLOBIN 9.2 g/dL (13.5-17.5); MCH 31.4 pg (26.0-34.0); MCHC 33.2 g/dL (31.0-37.0); MCV 94.5 fL (80.0-100.0); RBC 2.93 10x6/uL (4.20-6.10); RDW 13.8 % (11.5-14.5); WBC 10.2 10x3/uL (4.8-10.8)
[2017-08-26 06:56] LABS: ALBUMIN 2.6 g/dL (3.4-5.0); ANION GAP 11.4 mmol/L (8-16); BILIRUBIN - TOTAL 0.92 mg/dL (0.2-1.3); CALCIUM 7.9 mg/dL (8.5-10.1); CARBON DIOXIDE 28.8 mmol/L (21.0-32.0); CREATININE - SERUM 1.7 mg/dL (0.6-1.3); POTASSIUM - SERUM 4.2 mmol/L (3.5-5.1)
[2017-08-27] VITALS (25 sets, daily range): BP systolic 126–186; BP diastolic 60–98
[2017-08-27 05:12] LABS: HEMATOCRIT 26.8 % (42.0-54.0); HEMOGLOBIN 9.3 g/dL (13.5-17.5); MCH 32.6 pg (26.0-34.0); MCHC 34.7 g/dL (31.0-37.0); MEAN PLATELET VOLUME 11.9 fL (7.4-10.4); RBC 2.85 10x6/uL (4.20-6.10); RDW 13.5 % (11.5-14.5); WBC 9.4 10x3/uL (4.8-10.8)
[2017-08-27 05:32] LABS: ALBUMIN 2.5 g/dL (3.4-5.0); ANION GAP 7.2 mmol/L (8-16); BILIRUBIN - TOTAL 0.69 mg/dL (0.2-1.3); CALCIUM 7.8 mg/dL (8.5-10.1); CARBON DIOXIDE 29.9 mmol/L (21.0-32.0); CREATININE - SERUM 1.5 mg/dL (0.6-1.3); POTASSIUM - SERUM 4.1 mmol/L (3.5-5.1); PROTEIN - SERUM 5.8 g/dL (6.4-8.2)
[2017-08-28] VITALS (20 sets, daily range): BP systolic 125–176; BP diastolic 42–98
[2017-08-29] VITALS (18 sets, daily range): BP systolic 130–163; BP diastolic 45–95
[2017-08-29] MEDS ORDERED: ASPIRIN81 MG PO (10:52)
[2017-08-29] MEDS ORDERED: PERCOCET 10/3251 TA1 PO (10:52)
[2017-08-29] MEDS ORDERED: PACERONE200 MG PO (10:53)
[2017-08-29] MEDS ORDERED: CORDARONE200 MG PO (10:55)
[2017-08-29] MEDS ORDERED: ZOCOR20 MG PO (10:57)
== END 2017-08-29 18:38 | DRG 236 ==
LOC: D.SDCHOLD 11:30 → D.CVICU 08-22 05:00 → D.SDCHOLD 08-22 05:00 → D.CVICU 08-22 13:04
PROVIDERS: Internal Medicine Cardiovascular Disease
PROC: 021109W Bypass Coronary Artery, Two Arteries from Aorta with Autologous Venous Tissue, Open Approach (ICD-10-PCS; 2017-08-22)
PROC: 06BP0ZZ Excision of Right Saphenous Vein, Open Approach (ICD-10-PCS; 2017-08-22)
PROC: B24BZZ4 Ultrasonography of Heart with Aorta, Transesophageal (ICD-10-PCS; 2017-08-22)
PROC: 5A1221Z Performance of Cardiac Output, Continuous (ICD-10-PCS; 2017-08-22)
PROC: 02110ZC Bypass Coronary Artery, Two Arteries from Thoracic Artery, Open Approach (ICD-10-PCS; principal; 2017-08-22 07:30)
DX: I25.10 Atherosclerotic heart disease of native coronary artery without angina pectoris (principal); I48.1 Persistent atrial fibrillation; I10 Essential (primary) hypertension; E78.5 Hyperlipidemia, unspecified; E11.9 Type 2 diabetes mellitus without complications; E03.9 Hypothyroidism, unspecified; Z85.51 Personal history of malignant neoplasm of bladder; I44.7 Left bundle-branch block, unspecified; I48.0 Paroxysmal atrial fibrillation; K59.00 Constipation, unspecified; K31.84 Gastroparesis

== ENCOUNTER 2017-08-29 16:16 | Inpatient (IN) | payer MEDICARE ==
[~2017-08-29] VITALS: Ht 190.5 cm; Wt 108.9 kg
--- NOTE | ~2017-08-29 | RHP ---
PATIENT: FLOWER DUARTE JR MEDICAL RECORD: [id number] ACCOUNT: [id number] LOCATION:[facility]1109 : 41 ADMISSION DATE: 08/29/17 REHABILITATION HISTORY AND PHYSICAL EXAMINATION POST ADMISSION PHYSICIAN EXAMINATION DATE OF ADMISSION: 08/29/2017 ADMITTING DIAGNOSIS: Critical illness myopathy. HISTORY OF PRESENT ILLNESS: The patient admitted to inpatient rehab with critical illness myopathy. He is a 77-year-old gentleman who presented to his family practice office's doctor on 07/27/2017 with complaints of increasing shortness of breath. He had shortness of breath with exertion combined with extreme fatigue. He is referred to cardiology for dyspnea on exertion. He underwent a cardiac catheterization and was found to have a 5-vessel coronary artery disease. He was then referred to Dr. Sargent. He underwent coronary artery bypass grafting on 08/22/2017. He has had some postop complications of acute blood loss anemia, hyperglycemia, shortness of breath with ambulation, bilateral pleural effusions, muscle weakness, unsteady balance, myopathy, paroxysmal atrial fib and gastroparesis. He is on telemetry, he has had surgical dressing to his sternal area and right lower extremity. He is hard of hearing, has hearing devices, but is not compliant with wearing them. He was completely independent with ADLs prior to his CABG. He is currently set up for mod assist with ADLs and mod assist with mobility with proximal weakness noted with difficulty rising from bed to chair. He and his plan for him to return home, close to his prior level of function as possible after his inpatient stay. COMORBIDITIES: In this patient include acute critical illness myopathy, paroxysmal atrial fib, myopathy, bilateral pleural effusions, acute blood loss anemia, acute atherosclerosis, acute diabetes, acute hypertension, acute hyperlipidemia, hypothyroidism and gastroparesis. PAST MEDICAL HISTORY: Significant for hypothyroidism, diabetes, vitamin D deficiency, hyperlipidemia, obstructive sleep apnea, hypertension, osteoarthritis, bladder cancer, bursitis of his shoulders, acid reflux, arthritis, BPH, urinary retention, prostate problems. PAST SURGICAL HISTORY: Includes hernia and bladder cancer surgery. ALLERGIES: ACCUPRIL. CURRENT MEDICATIONS: Include Flomax daily. He is on Avodart 0.5 mg daily. He is on Diovan 320 daily. He is on Detrol-LA 4 mg daily, spironolactone 25 mg daily, Zocor 20 mg daily, potassium 20 mEq daily, Protonix 40 mg daily, metformin 500 mg b.i.d. with meals. He is on Linzess 72 mcg daily, Synthroid 75 mcg daily, Neurontin 300 mg daily, Cardura 1 mg daily, aspirin chewable 81 mg daily, polyethylene glycol 17 grams in 8 ounces of water daily. He is on Percocet 10/325 one every 6 hours p.r.n. pain, Trandate 300 mg b.i.d., vitamin D 1000 units b.i.d., Cordarone 400 mg b.i.d. HABITS: No current alcohol or tobacco use. FAMILY HISTORY: Noncontributory. HISTORY AND PHYSICAL [id number] FLOWER DUARTE JR SOCIAL HISTORY: The patient hopes to return back home and get back to his prior level of functioning. REVIEW OF SYSTEMS: GENERAL: He does complain of weakness and fatigue. HEENT: Denies cold, cough, or congestion. CARDIOVASCULAR: He denies chest pain. PHYSICAL EXAMINATION: VITAL SIGNS: Stable, afebrile. GENERAL: A morbidly obese gentleman in no acute distress, alert upon exam. HEENT: Normocephalic and atraumatic. Mucosa moist. NECK: Supple. No lymphadenopathy. LUNGS: Clear at this time. HEART: Regular rate and rhythm. ABDOMEN: Benign. EXTREMITIES: No clubbing, cyanosis or edema. Does have dressings in place. NEUROLOGIC: He does have noted proximal muscle weakness. LABORATORY DATA: White count is 9.3, H&H of 9.8 and 29.4 and platelet count is 237. His sodium is 141, potassium 3.7, BUN and creatinine of 26 and 1.4 and blood sugar is noted to be 162. ASSESSMENT: This is a 77-year-old gentleman who is admitted to rehab with a working diagnosis of critical illness myopathy status post coronary artery bypass grafting. The patient has potential to make improvement. We instituted the following multidisciplinary therapies include, but not limited to physical, occupational, respiratory, speech, nutritional services, prosthetics and orthotics. Given his complex medical condition and risk for more complications, rehabilitation services cannot be provided at a low level of care such as penitentiary facility. PLAN: 1. Admit to [facility] for intensive inpatient therapy to include the following disciplines: A. Physical therapy to improve gait, all transfer skills and bed mobility to a modified independent level. B. Occupational therapy to improve activities of daily living to a modified independent level. C. Case management to assist with discharge planning and placement options. D. Nutrition to assist with nutritional needs. E. Rehabilitation nursing to assist in monitoring the patient's underlying medical conditions and to assist with any type of bowel or bladder management. 2. The patient's current medication and medical care will be continued. 3. Placed on standard fall precautions. 4. The patient's estimated length of stay is approximately 7 to 10 days. 5. We will follow this patient along with Dr. Sargent. TRANSINT:[id number] Voice Confirmation ID: [id number] DOCUMENT ID: [id number] MARAH notes whether there has been none or any medical/functional change since admission: - No change since preadmission screen. HISTORY AND PHYSICAL [id number] FLOWER DUARTE JR attests patient continues to be appropriate for IRF: - Continues to be appropriate. SAL LOPEZ MD at 2041 CC: [id number] DICTATION DATE: 08/30/17 0832 JEWELRY CUTTER: 08/30/17 0917 ADM IN [place] [id number] [place] [id number]
[~2017-08-29 16:16] MED LIST changes: +ASPIRIN81 MG PO; +CORDARONE200 MG PO; +JALYN 0.5-0.41 EACH PO; +PACERONE200 MG PO; +PERCOCET 10/3251 TA1 PO; +VITAMIN D31000 UNI2 PO; +ZOCOR20 MG PO
[2017-08-29 21:26] VITALS: BP 155/85
[2017-08-30 06:51] LABS: BASOPHILS 0.2 % (0-2); EOSINOPHILS 4.5 % (0-7); HEMATOCRIT 29.4 % (42.0-54.0); HEMOGLOBIN 9.8 g/dL (13.5-17.5); IMMATURE GRANULOCYTES 1.3 % (0-5); LYMPHOCYTES 10.7 % (15-50); MCHC 33.3 g/dL (31.0-37.0); MEAN PLATELET VOLUME 11.1 fL (7.4-10.4); MONOCYTES 8.9 % (2-11); NEUTROPHILS 74.4 % (40-80); RBC 3.16 10x6/uL (4.20-6.10); RDW 13.4 % (11.5-14.5); WBC 9.3 10x3/uL (4.8-10.8)
[2017-08-30 06:57] LABS: ANION GAP 9.6 mmol/L (8-16); CALCIUM 8.2 mg/dL (8.5-10.1); CARBON DIOXIDE 32.1 mmol/L (21.0-32.0); CREATININE - SERUM 1.4 mg/dL (0.6-1.3); POTASSIUM - SERUM 3.7 mmol/L (3.5-5.1)
[2017-08-30 07:04] LABS: PLATELET COUNT 237 10x3/uL (130-400)
[2017-08-30 08:00] VITALS: BP 161/112
[2017-08-30 10:00] VITALS: Ht 190.5 cm; Wt 108.9 kg
[2017-08-30 19:00] VITALS: BP 173/66
[2017-08-31 08:15] VITALS: BP 171/80
[2017-08-31 19:58] VITALS: BP 172/83
[2017-09-01 06:18] LABS: BASOPHILS 0.4 % (0-2); EOSINOPHILS 6.4 % (0-7); HEMATOCRIT 30.5 % (42.0-54.0); HEMOGLOBIN 9.9 g/dL (13.5-17.5); IMMATURE GRANULOCYTES 1.3 % (0-5); LYMPHOCYTES 11.8 % (15-50); MCH 30.8 pg (26.0-34.0); MCHC 32.5 g/dL (31.0-37.0); MONOCYTES 8.6 % (2-11); NEUTROPHILS 71.5 % (40-80); PLATELET COUNT 248 10x3/uL (130-400); RBC 3.21 10x6/uL (4.20-6.10); RDW 13.8 % (11.5-14.5); WBC 9.4 10x3/uL (4.8-10.8)
[2017-09-01 06:45] LABS: ANION GAP 6.7 mmol/L (8-16); CALCIUM 8.3 mg/dL (8.5-10.1); CARBON DIOXIDE 32.1 mmol/L (21.0-32.0); CREATININE - SERUM 1.6 mg/dL (0.6-1.3); POTASSIUM - SERUM 3.8 mmol/L (3.5-5.1)
[2017-09-01 19:00] VITALS: BP 169/74
[2017-09-02 09:14] VITALS: BP 169/87
[2017-09-02 20:30] VITALS: BP 161/71
[2017-09-03 08:45] VITALS: BP 176/79
[2017-09-03 19:55] VITALS: BP 157/82
[2017-09-04 06:32] LABS: BASOPHILS 0.5 % (0-2); EOSINOPHILS 5.6 % (0-7); HEMATOCRIT 30.7 % (42.0-54.0); HEMOGLOBIN 9.9 g/dL (13.5-17.5); IMMATURE GRANULOCYTES 0.7 % (0-5); LYMPHOCYTES 8.7 % (15-50); MCH 30.6 pg (26.0-34.0); MCHC 32.2 g/dL (31.0-37.0); MCV 94.8 fL (80.0-100.0); MONOCYTES 8.9 % (2-11); NEUTROPHILS 75.6 % (40-80); PLATELET COUNT 251 10x3/uL (130-400); RBC 3.24 10x6/uL (4.20-6.10); WBC 10.3 10x3/uL (4.8-10.8)
[2017-09-04 07:08] LABS: ANION GAP 11.7 mmol/L (8-16); CALCIUM 8.1 mg/dL (8.5-10.1); CARBON DIOXIDE 28.9 mmol/L (21.0-32.0); CREATININE - SERUM 1.5 mg/dL (0.6-1.3); POTASSIUM - SERUM 3.6 mmol/L (3.5-5.1)
[2017-09-04 08:00] VITALS: BP 167/89
[2017-09-04 19:00] VITALS: BP 177/79
[2017-09-05 08:00] VITALS: BP 162/76
[2017-09-05 20:00] VITALS: BP 161/82
[2017-09-06 07:00] LABS: BASOPHILS 0.5 % (0-2); EOSINOPHILS 6.3 % (0-7); HEMATOCRIT 32.5 % (42.0-54.0); HEMOGLOBIN 10.7 g/dL (13.5-17.5); IMMATURE GRANULOCYTES 0.3 % (0-5); LYMPHOCYTES 9.5 % (15-50); MCH 30.9 pg (26.0-34.0); MCHC 32.9 g/dL (31.0-37.0); MCV 93.9 fL (80.0-100.0); MEAN PLATELET VOLUME 11.1 fL (7.4-10.4); MONOCYTES 8.5 % (2-11); NEUTROPHILS 74.9 % (40-80); PLATELET COUNT 268 10x3/uL (130-400); RBC 3.46 10x6/uL (4.20-6.10); RDW 14.3 % (11.5-14.5); WBC 9.1 10x3/uL (4.8-10.8)
[2017-09-06 07:23] LABS: ANION GAP 11.1 mmol/L (8-16); CALCIUM 8.6 mg/dL (8.5-10.1); CARBON DIOXIDE 27.5 mmol/L (21.0-32.0); CREATININE - SERUM 1.3 mg/dL (0.6-1.3); POTASSIUM - SERUM 3.6 mmol/L (3.5-5.1)
[2017-09-06 08:00] VITALS: BP 168/77
[2017-09-06] MEDS ORDERED: ACETAMINOPHEN500 M1 PO (11:56)
[2017-09-06] MEDS ORDERED: CLEOCIN HCL300 MG PO (12:06)
== END 2017-09-06 13:35 | disposition home health service (06) | DRG 92 ==
LOC: D.REHAB 16:16
PROVIDERS: Emergency Medicine
DX: G72.81 Critical illness myopathy (principal); J90 Pleural effusion, not elsewhere classified; D62 Acute posthemorrhagic anemia; I48.0 Paroxysmal atrial fibrillation; I70.90 Unspecified atherosclerosis; I25.10 Atherosclerotic heart disease of native coronary artery without angina pectoris; E11.65 Type 2 diabetes mellitus with hyperglycemia; E11.43 Type 2 diabetes mellitus with diabetic autonomic (poly)neuropathy; E03.9 Hypothyroidism, unspecified; K31.84 Gastroparesis; K21.9 Gastro-esophageal reflux disease without esophagitis; I10 Essential (primary) hypertension; E78.5 Hyperlipidemia, unspecified

== ENCOUNTER 2017-09-10 13:10 | Emergency (ER) | payer MEDICARE ==
[~2017-09-10] VITALS: Ht 190.5 cm; Wt 108.2 kg
[~2017-09-10 13:10] MED LIST changes: +ACETAMINOPHEN500 M1 PO; +CLEOCIN HCL300 MG PO
[2017-09-10 13:26] VITALS: Ht 190.5 cm; Wt 108.2 kg
[2017-09-10 13:58] LABS: BASOPHILS 1.2 % (0-2); HEMATOCRIT 32.3 % (42.0-54.0); HEMOGLOBIN 10.5 g/dL (13.5-17.5); IMMATURE GRANULOCYTES 0.1 % (0-5); MCH 30.6 pg (26.0-34.0); MCHC 32.5 g/dL (31.0-37.0); MCV 94.2 fL (80.0-100.0); MEAN PLATELET VOLUME 10.9 fL (7.4-10.4); NEUTROPHILS 68.7 % (40-80); PLATELET COUNT 265 10x3/uL (130-400); RBC 3.43 10x6/uL (4.20-6.10); RDW 14.3 % (11.5-14.5); WBC 7.7 10x3/uL (4.8-10.8)
[2017-09-10 14:10] LABS: APTT 37.6 SECONDS (22.8-39.4); INR 1.09 (0.85-1.17); PROTIME 13.7 SECONDS (11.6-15.0)
[2017-09-10 14:29] LABS: ALBUMIN 3.1 g/dL (3.4-5.0); ALKALINE PHOSPHATASE 68 U/L (46-116); ALT (SGPT) 39 U/L (10-68); BILIRUBIN - TOTAL 0.58 mg/dL (0.2-1.3); CALC OSMOLALITY 284 mosm/kg (275-300); CALCIUM 8.8 mg/dL (8.5-10.1); CARBON DIOXIDE 27.9 mmol/L (21.0-32.0); CHLORIDE - SERUM 106 mmol/L (98-107); CREATININE - SERUM 1.3 mg/dL (0.6-1.3); GLUCOSE 104 mg/dL (74-106); POTASSIUM - SERUM 3.9 mmol/L (3.5-5.1); PROTEIN - SERUM 6.6 g/dL (6.4-8.2); SODIUM 142 mmol/L (136-145); UREA NITROGEN 17 mg/dL (7-18); eGFR NON AFRICAN AMERICAN 57 mL/min (90-120)
[2017-09-10 14:39] LABS: CKMB 1.8 U/L (0.0-3.6); TROPONIN-I 0.049 ng/mL (0.000-0.060)
[2017-09-10 14:46] LABS: APPEARANCE HAZY (CLEAR); BILIRUBIN NEGATIVE (NEGATIVE); COLOR RED (YELLOW); GLUCOSE NEGATIVE (NEGATIVE); KETONE NEGATIVE (NEGATIVE); NITRITE NEGATIVE (NEGATIVE); PROTEIN 1+ mg/dL (NEGATIVE); UROBILINOGEN NORMAL (NORMAL)
[2017-09-10 14:48] LABS: BACTERIA FEW /hpf (NONE SEEN); RED CELLS - URINE >50 /hpf (0-5); WHITE CELLS - URINE 0-5 /hpf (0-5)
[2017-09-10 16:54] VITALS: BP 158/70
== END 2017-09-10 16:55 | disposition home or self-care (01) ==
LOC: D.ER 13:10
PROVIDERS: Family Medicine
DX: R31.9 Hematuria, unspecified (principal); E11.9 Type 2 diabetes mellitus without complications; I10 Essential (primary) hypertension; I25.10 Atherosclerotic heart disease of native coronary artery without angina pectoris

== ENCOUNTER → 2017-10-05 11:02 | Outpatient (CLI) | payer MEDICARE ==
[2017-09-10 13:26] VITALS: BMI 29.8
[2017-10-05 11:45] LABS: HEMATOCRIT 34.6 % (42.0-54.0); HEMOGLOBIN 11.2 g/dL (13.5-17.5); MCH 30.4 pg (26.0-34.0); MCHC 32.4 g/dL (31.0-37.0); MCV 93.8 fL (80.0-100.0); MEAN PLATELET VOLUME 10.9 fL (7.4-10.4); RBC 3.69 10x6/uL (4.20-6.10); RDW 13.3 % (11.5-14.5); WBC 6.3 10x3/uL (4.8-10.8)
[2017-10-05 11:58] LABS: ALBUMIN 3.4 g/dL (3.4-5.0); ANION GAP 14.2 mmol/L (8-16); BILIRUBIN - TOTAL 0.34 mg/dL (0.2-1.3); CALCIUM 8.8 mg/dL (8.5-10.1); CARBON DIOXIDE 23.9 mmol/L (21.0-32.0); CREATININE - SERUM 1.4 mg/dL (0.6-1.3); POTASSIUM - SERUM 4.1 mmol/L (3.5-5.1); PROTEIN - SERUM 6.8 g/dL (6.4-8.2)
== END | disposition home or self-care (01) ==
LOC: D.RAD 08:30
PROVIDERS: Internal Medicine Cardiovascular Disease
DX: J91.8 Pleural effusion in other conditions classified elsewhere (principal); D64.9 Anemia, unspecified

== ENCOUNTER → 2019-05-14 10:49 | Outpatient (CLI) | payer MEDICARE ==
[2017-09-10 13:26] VITALS: BMI 29.8
--- NOTE | 2019-05-16 11:53 | EC ---
PATIENT:FLOWER DUARTE JR DATE OF SERVICE: 05/14/19 SEX: M MEDICAL RECORD: [id number] DATE OF : 42 [facility]GE [facility] PAT[facility]: 79 ADMISSION DATE: 05/14/19 REFERRING PHYSICIAN: INTERPRETING PHYSICIAN: AYDE CASPER MD ECHOCARDIOGRAM REPORT ECHO CHARGES 4 ECHO COMPLETE Date: 05/14/19 CLINICAL DIAGNOSIS: HTN/CAD HX OFCABG ECHOCARDIOGRAPHIC MEASUREMENTS (adult normal given) AC root (d.<3.7cm) 4.6 cm LV Septum d (<1.2 cm> 1.8 cm Valve Excursion 1.9 cm LV Septum (systole) 2.0 cm Left Atria (s.<4.0cm> 4.8 cm LVPW d(<1.2cm) 1.7 cm RV (d.<2.3cm) 4.2 cm LVPW (sytole) 2.0 cm LV diastole(<5.6CM) 5.2 cm MV E-F(>70mm/sec) cm LV systole 3.5 cm LVOT Diameter 2.2 cm MV exc.(>10mm) 1.8 cm Est.ejection fraction (50-75%) % DOPPLER: LVIT cm/sec A 77.0 cm/sec E 45.0 cm/sec LA cm/sec RVSP 24 mmHg LVOT 90 cm/sec AOP1/2T m/s Asc. Ao 159 cm/sec RVOT 69 cm/sec RA cm/sec PA 135 cm/sec AV Gradient Peak 10.12mmHg AV Mean 6.67 mmHg AV Area 2.8 cm MV Gradient Peak 3.51 mmHg MV Mean 1.31 mmHg MV Area cm COMMENTS: Wet Suit Gluer: 2 ABIMAEL SIEGEL Roughing Mill Operator: 3 Dr. Hickey TAPE# PACS Pericardial Effusion N DATE OF SERVICE: Adequate 2D, color flow imaging, spectral Doppler, and M-Mode. LVH is present. LV internal dimensions are normal. Wall motion is normal. EF greater than 55%. Aortic valve is tricuspid. No evidence of stenosis by Doppler interrogation. Left atrium is dilated at 4.8 cm. Mitral valve shows no prolapse. Mild MR. Right-sided chambers are grossly normal. Trace TR. TRANSINT:[id number] Voice Confirmation ID: [id number] DOCUMENT ID: [id number] ECHOCARDIOGRAM REPORT [id number] FLOWER DUARTE JR, GREGORY A MD at 1153 CC: [id number] DICTATION DATE: 05/14/19 1351 MD SENIOR RESEARCH SCIENTIST: 05/14/19 1400 DEP CLI 05/14/19 [place] [id number] [place] [address]
== END | disposition home or self-care (01) ==
LOC: D.HCCECHO 10:49
PROVIDERS: ATTEND Internal Medicine Interventional Cardiology
DX: I10 Essential (primary) hypertension (principal)